=== PATIENT | male | born 1980 | race Hispanic/Latino ===

== ENCOUNTER 2017-08-02 06:56 | Emergency (ER) | payer SELFPAY ==
[2017-08-02] MEDS ORDERED: HYDROCODONE/ACETAMINOPHEN 10/325 MG TAB ONE (07:24)
[2017-08-02] MEDS ORDERED: KETOROLAC TROMETHAMINE 30MG/ML ONE (07:24)
== END 2017-08-02 08:31 | disposition home or self-care (01) ==
LOC: EDH 06:56
DX: M54.16 Radiculopathy, lumbar region (principal); E11.9 Type 2 diabetes mellitus without complications; I10 Essential (primary) hypertension; E78.5 Hyperlipidemia, unspecified
CPT/HCPCS: 96372; 99283; J1885